=== PATIENT | female | born 1975 | race Caucasian/White ===

== ENCOUNTER 2017-03-27 00:46 | Emergency (ER) | payer BC ==
--- NOTE | 2017-03-27 00:48 | PDOC ---
History of Present Illness - General Chief Complaint: Pain Stated Complaint: LLQ PAIN Time Seen by Provider: 03/27/17 00:47 - History of Present Illness Initial Comments: This 42-year-old woman with a history of kidney stones, IBS, endometriosis, C. difficile colitis (4 years ago) presents with 24-hour history of progressive left lower quadrant abdominal pain. Patient was seen by urgent care at [facility] earlier today. Ultrasound at that time showed no evidence of hydronephrosis /hydroureter, kidney stones; patient had bilateral ovarian cysts (complex on right, simple on the left) left-sided ovarian cyst with 3.7 cm. There is no evidence of free fluid in the pelvis. Patient was given Tylenol with Codeine for pain relief. The patient has had 2 doses since discharge from urgent care( 3 PM and 9 PM) with little relief of her pain. She was waiting at another ER for approximately 1 hour without being seen and presented here. She has not had fever but has had chills for the last few hours. She also notes nausea without vomiting. She has had one normal bowel movement in the last several hours which was not painful but actually resulted in some relief of pain temporarily. Past History - Past Medical History Allergies/Adverse Reactions: Allergies Allergy/AdvReac Type Severity Reaction Status Date / Time Sulfa (Sulfonamide Allergy Verified 09/05/13 12:25 Antibiotics) Home Medications: Ambulatory Orders Labetalol HCl 150 mg PO BID 09/05/13 Escitalopram Oxalate [Lexapro -] 10 mg PO DAILY 03/27/17 Oxycodone HCl/Acetaminophen [Percocet 5-325 mg Tablet] 1 tab PO Q6H PRN #12 tablet MDD 3 tabs 03/27/17 HTN: Yes Kidney Stones: Yes - Surgical History GI Surgery: Yes (UTERINE) - Suicide/Smoking/Psychosocial Hx Smoking History: Never smoked Review of Systems - Review of Systems Able to Perform ROS?: Yes Comments:: 12 point review of systems is negative except for what is noted in the history of present illness *Physical Exam - Physical Exam Comments: GENERAL: Adult female, in moderate distress secondary to lower abdominal pain; alert and oriented 3 HEAD: Normal with no signs of trauma. EYES: PERRLA, EOMI, sclera anicteric, conjunctiva clear. ENT: Ears normal, nares patent, oropharynx clear without exudates. Dry mucous membranes. NECK: Normal range of motion, supple without lymphadenopathy, JVD, or masses. LUNGS: Breath sounds equal, clear to auscultation bilaterally. No wheezes, and no crackles. HEART:Regular rate and rhythm, normal S1 and S2 without murmur, rub or gallop. ABDOMEN:.normal bowel sounds; marked left lower quadrant pain with mild guarding ; no rebound/no masses/no organomegaly EXTREMITIES: Normal range of motion, no edema. No clubbing or cyanosis. No erythema, or tenderness. NEUROLOGICAL: Cranial nerves II through XII grossly intact. Normal speech. No focal neurological deficits. MUSCULOSKELETAL: Back non-tender to palpation, no CVA tenderness SKIN: Warm, Dry, normal turgor, no rashes or lesions noted. ED Treatment Course - LABORATORY CBC & Chemistry Diagram: 03/27/17 01:45 03/27/17 01:45 Progress Note - Progress Note Progress Note: Although this patient has had ultrasound earlier today which showed only ovarian cysts, she has had progressive pain with the development of nausea over the last few hours[albeit after 2 doses of Tylenol with codeine]. Because she has mild rebound and marked tenderness of left lower quadrant on current exam, further workup to rule out acute diverticulitis as well as ovarian torsion/ rupture of cyst was pursued. CBC/chemistry profile/urinalysis/PGU was sent No significant abnormality seen on laboratory evaluation. PGU negative Patient was given Toradol 30 mg IV/1 L of normal saline IV/Zofran 4 mg IV. Patient had minimal relief after Toradol. Dilaudid 0.5 mg IV administered. Abdominal/pelvic CT (IV contrast/no PO contrast) showed 3. 7 cm left-sided ovarian cyst without evidence of rupture/torsion/abscess. No evidence of diverticulitis or other acute colonic process. No other abnormalities found. Results discussed with the patient. Patient had good relief of pain with Dilaudid IV. Patient was discharged with instructions to follow-up with her color buffer on April 01 as previously scheduled. She should place warm compresses to the area of pain and use ibuprofen/acetaminophen/naproxen as needed for mild- to-moderate pain. Prescription for Percocet 5/325 should be used for more severe pain up to 3 times a day (patient should not use Tylenol with codeine while using Percocet). One tablet of Percocet 5/325 was given to the patient for use at home prior to filling the prescription. Patient should return to the emergency room if she has persistent severe pain or develops fever/vomiting *DC/Admit/Observation/Transfer Diagnosis at time of Disposition: Left ovarian cyst - Discharge Dispostion Disposition: HOME Condition at time of disposition: Stable - Prescriptions Prescriptions: Oxycodone HCl/Acetaminophen [Percocet 5-325 mg Tablet] 1 tab PO Q6H PRN #12 tablet MDD 3 tabs PRN Reason: Severe Pain - Referrals - Patient Instructions Printed Discharge Instructions: Ovarian Cyst Additional Instructions: Local warmth to left lower abdomen as needed Ibuprofen/naproxen/acetaminophen for [id number] pain Percocet 5/325 up to 3 times a day as needed for severe pain Follow-up with your color buffer on April 01 as scheduled Return to ER if you have persistent severe pain/fever/vomiting - Post Discharge Activity
[2017-03-27 01:17] VITALS: TEMP 98.8; BMI 25.0
[2017-03-27] MEDS ORDERED: KETOROLAC TROMETHAMINE 30 MG/1 ML VIAL IVPUSH ONE (01:18)
[2017-03-27] MEDS ORDERED: SODIUM CHLORIDE 1,000 ML IV STA (01:18)
[2017-03-27] MEDS ORDERED: ONDANSETRON 4 MG/2 ML VIAL IVPUSH ONE (01:20)
[2017-03-27] MEDS ORDERED: KETOROLAC TROMETHAMINE 30 MG/1 ML VIAL ONE (01:47)
[2017-03-27] MEDS ORDERED: ONDANSETRON 4 MG/2 ML VIAL ONE (01:47)
[2017-03-27] MEDS ORDERED: HYDROmorphone HCL CARPU-JECT 1 MG/1 ML DISP.SYRIN IVPUSH ONE (02:11)
[2017-03-27] MEDS ORDERED: HYDROmorphone HCL CARPU-JECT 1 MG/1 ML DISP.SYRIN ONE (02:13)
[2017-03-27 02:17] LABS: BASO % 0.2 % (0-2.0); EOS % 0.5 % (0-4.5); HEMATOCRIT 38.6 % (32.4-45.2); HEMOGLOBIN 12.6 GM/dL (10.7-15.3); MCH 28.4 pg (25.7-33.7); MCHC 32.6 g/dl (32.0-36.0); MEAN CELL VOLUME 87.3 fl (80-96); MEAN PLT VOLUME 8.3 fl (7.5-11.1); NEUT % 72.3 % (42.8-82.8); PLATELET COUNT 286 K/MM3 (134-434); RBC 4.42 M/mm3 (3.60-5.2); RDW 14.3 % (11.6-15.6); WHITE BLOOD COUNT 8.2 K/mm3 (4.0-10.0)
[2017-03-27 02:18] LABS: URINE APPEARANCE CLEAR; URINE BILIRUBIN NEGATIVE (NEGATIVE); URINE BLOOD NEGATIVE (NEGATIVE); URINE COLOR LTYELLOW; URINE GLUCOSE (UA) NEGATIVE (NEGATIVE); URINE KETONE NEGATIVE (NEGATIVE); URINE LEUK ESTERASE NEGATIVE (NEGATIVE); URINE NITRITE NEGATIVE (NEGATIVE); URINE PROTEIN NEGATIVE (NEGATIVE); URINE UROBILINOGEN NEGATIVE mg/dL (0.2-1.0)
[2017-03-27 02:38] LABS: ALBUMIN 4.1 g/dl (3.4-5.0); ALK PHOS 94 U/L (45-117); ANION GAP 11 (8-16); BILIRUBIN,TOTAL 1.2 mg/dL (0.2-1.0); BLOOD UREA NITROGEN 12 mg/dL (7-18); CALCIUM 9.1 mg/dL (8.5-10.1); CHLORIDE 103 mmol/L (98-107); CO2 26 mmol/L (21-32); CREATININE 0.6 mg/dL (0.55-1.02); GLUCOSE,RANDOM 107 mg/dL (74-106); POTASSIUM 3.9 mmol/L (3.5-5.1); SGOT/AST 15 U/L (15-37); SGPT/ALT 30 U/L (12-78); SODIUM 140 mmol/L (136-145); TOT PROT 7.7 g/dl (6.4-8.2)
[2017-03-27 04:06] VITALS: BP 144/86; PULSE 79
== END 2017-03-27 04:41 | disposition home or self-care (01) ==
LOC: FER 00:46
PROC: 3E033NZ Introduction of Analgesics, Hypnotics, Sedatives into Peripheral Vein, Percutaneous Approach (ICD-10-PCS; principal; 2017-03-27)
PROC: 3E0333Z Introduction of Anti-inflammatory into Peripheral Vein, Percutaneous Approach (ICD-10-PCS; 2017-03-27)
PROC: 3E033GC Introduction of Other Therapeutic Substance into Peripheral Vein, Percutaneous Approach (ICD-10-PCS; 2017-03-27)
PROC: 3E0337Z Introduction of Electrolytic and Water Balance Substance into Peripheral Vein, Percutaneous Approach (ICD-10-PCS; 2017-03-27)
DX: N83.202 Unspecified ovarian cyst, left side (principal)
CPT/HCPCS: 36415; 74177-TC; 80053; 81003; 84703; 85025; 99283-25

== ENCOUNTER 2017-09-17 06:11 | Day surgery (SDC) | payer BC ==
[2017-09-15 18:11] VITALS: BMI 35.4
--- NOTE | 2017-09-16 19:01 | HP ---
DATE OF ADMISSION: 09/17/2017 ADMITTING DIAGNOSIS: Thyroglossal duct cyst. HISTORY OF PRESENT ILLNESS: This 42-year-old female has had history of swelling of the anterior neck. She has associated symptoms of hoarseness. She also feels constriction, especially when she bends forward or twists her neck. There is an unrelated history of gastroesophageal reflux disease. Her examination is consistent with a thyroglossal duct cyst which is confirmed on ultrasound. She is now admitted for excision of thyroglossal duct cyst. PAST MEDICAL HISTORY: Primary medical doctor is Dr. Pat Carballo. The patient has a history of kidney stones, hypertension, history of clostridium difficult treated with fecal transplant, migraine headaches, endometriosis, section, with postoperative embolism, chronic sinusitis, allergies and irritable bowel syndrome. She does not smoke. She does have allergies to SULFA. MEDICATION: Present medications include labetalol, Lexapro, and . SOCIAL HISTORY: She is and lives in [place]. She did have some postoperative nausea following general anesthesia. Bleeding history is negative. 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 FAMILY HISTORY: There is no family history of bleeding or anesthesia problems. PHYSICAL EXAMINATION: General: Patient is well developed female, in no distress. HEENT: Head is normal. Eyes are clear. Ears are unremarkable. The neck is remarkable for a 3.5 to 4 cm thyroglossal duct cyst in its usual location. It is soft, and there is an overlying relaxing and tension line. DATA: Preoperative labs are pending. Thyroid ultrasound performed at [facility] on June 07, 2017, shows a normal sized thyroid with no cysts or solid masses. The midline neck is remarkable for cystic structures 3.1 x 1.6 x 1.7 cm, consistent with a thyroglossal duct cyst. IMPRESSION: Thyroglossal duct cyst. PLAN: Excision of thyroglossal duct cyst. INFORMED CONSENT: Patient understands the indications, alternatives, nature of risks and benefits of proposed surgery. Potential complications including but not limited to anesthesia, bleeding, infection, scar, numbness, and need for further treatment were discussed in detail. She understands and accepts these risks and wished to proceed with surgery. Questions were answered fully. FREDDIE FOX M.D. PORSCHE/[id number] MTDD
--- NOTE | 2017-09-17 07:54 | HP ---
History & Physical Update - History History: No Change - Physical Physical: No Change - Assessment Assessment: No Change - Plan Plan: No Change
[2017-09-17] MEDS ORDERED: MIDAZOLAM HCL 2 MG/2 ML SINGLE DOSE VIAL ONE (07:56)
[2017-09-17] MEDS ORDERED: SUCCINYLCHOLINE CHLORIDE 200 MG/10 ML VIAL ONE (08:07)
[2017-09-17] MEDS ORDERED: ROCURONIUM BROMIDE 50 MG/5 ML VIAL ONE (08:07)
[2017-09-17] MEDS ORDERED: PROPOFOL 20 ML ONE (08:07)
[2017-09-17] MEDS ORDERED: LIDOCAINE HCL/PF 2% SDV 5ML VIAL ONE (08:20)
[2017-09-17] MEDS ORDERED: DEXAMETHASONE SOD PHOSPHATE 4 MG/1 ML VIAL ONE (08:20)
[2017-09-17] MEDS ORDERED: LIDOCAINE HCL 2% JELLY (5 ML/TUBE) ONE (08:20)
[2017-09-17] MEDS ORDERED: NEOSTIGMINE METHYLSULFATE 0.5 MG/ML - 10 ML MDV ONE (09:25)
[2017-09-17] MEDS ORDERED: GLYCOPYRROLATE 0.2 MG/1 ML VIAL ONE (09:25)
[2017-09-17] MEDS ORDERED: BENZOIN/ALOE VERA/STORAX/TOLU 58 ML BOTTLE ONE (09:28)
[2017-09-17] MEDS ORDERED: oxyCODONE HCL 5 MG TABLET PO PRN ×2 (09:41→13:35)
[2017-09-17] MEDS ORDERED: TRIMETHOBENZAMIDE HCL 200MG/2ML INJ IM PRN (09:41)
--- NOTE | 2017-09-17 09:41 | OP ---
Operative Note - Note: Operative Date: 09/17/17 ([id number]) Pre-Operative Diagnosis: thyroglossal duct cyst Operation: excision of thyroglossal duct cyst Findings: thyroglossal duct cyst, no tract toward hyoid bone Implants: none Post-Operative Diagnosis: Same as Pre-op Surgeon: Indra Guardado Anesthesiologist/PAPER BOX MAKER: Veronica Benitez MD Anesthesia: General Specimens Removed: thyroglossal duct cyst Estimated Blood Loss (mls): 3 Blood Volume Replaced (mls): 0 Operative Report Dictated: Yes
[2017-09-17] MEDS ORDERED: LACTATED RINGERS SOLUTION 1,000 ML IV SCH ×2 (09:45→13:45)
[2017-09-17] MEDS ORDERED: ACETAMINOPHEN INJECTION 100 ML IVPB ONE (10:44)
[2017-09-17] MEDS ORDERED: ONDANSETRON 4 MG/2 ML VIAL ONE (10:46)
[2017-09-17] MEDS ORDERED: ACETAMINOPHEN 1000 MG/100 ML VIAL (NON FORMULARY) IVPB ONE (10:50)
[2017-09-17 11:49] VITALS: TEMP 98.1
[2017-09-17] MEDS ORDERED: ONDANSETRON 4 MG/2 ML VIAL IVPUSH PRN (13:35)
[2017-09-17] MEDS ORDERED: PROMETHAZINE HCL 25 MG/1 ML VIAL IVPUSH PRN (13:35)
[2017-09-17 14:33] VITALS: BP 123/65; PULSE 73
--- NOTE | 2017-09-17 14:49 | OP ---
DATE OF OPERATION: 09/17/2017 PREOPERATIVE DIAGNOSIS: Thyroglossal duct cyst. POSTOPERATIVE DIAGNOSIS: Thyroglossal duct cyst. PROCEDURE: Excision of thyroglossal duct cyst. SURGEON: Freddie Guardado MD ANESTHESIOLOGIST: Veronica Benitez MD ANESTHESIA: General via endotracheal tube. INDICATIONS: This 42-year-old female has had swelling of the anterior neck at the midline which has gradually enlarged. It is creating symptoms, particularly pressure symptoms when she lies down or extends her neck. Examination demonstrates a 3-4-cm swelling of the anterior midline of the neck more superiorly. Ultrasound shows a normal thyroid gland, but a thyroglossal duct cyst. She is now brought to surgery for treatment. FINDINGS: Thyroglossal duct cyst, without any tracking to the hyoid bone. DESCRIPTION OF PROCEDURE: Patient was brought to the operating room and placed on the operating table in the supine position. General endotracheal anesthesia was induced to a satisfactory level. She was prepped and draped in the usual fashion for surgery. A naturally occurring skin fold was used to create the incision. It was carried down through skin and subcutaneous tissue, and hemostasis was achieved with electrocautery. The platysma muscle was then incised. The cyst was identified and careful blunt dissection it from its surrounding tissue. There was small rupture of the cyst anteriorly and straw-colored fluid was suctioned. The cyst wall was somewhat thickened and remained intact. An overlying vein was isolated, divided, and ligated with 4-0 silk. Additional dissection eventually freed the thyroglossal duct cyst from the surrounding tissue. There was no tract directed toward the hyoid bone. Final attachments were divided, and the cyst sent to Pathology for routine studies. The wound was irrigated with saline, and hemostasis was excellent. The wound was then closed in layers using 4-0 Vicryl for the muscle and subcutaneous layer. A running 5-0 Prolene suture was used in a subcuticular fashion for the skin. Benzoin was applied, overlapping Steri-Strips were placed, and then, a folded 4x4 and Tegaderm were placed. A 3x3 Kerlix was used. Patient tolerated the procedure well. She was then awakened from general anesthesia and transferred to PACU in stable condition. ESTIMATED BLOOD LOSS: Approximately 3 mL She received crystalloid during the procedure. SPECIMEN: The thyroglossal duct cyst was sent to Pathology for routine studies. COMPLICATIONS: There were no complications. FREDDIE GUARDADO M.D. PORSCHE/[id number]
--- NOTE | 2017-09-19 17:25 | PATH ---
Surgical Pathology Report Patient Name: OSITO JO [facility]. Rec. #: [id number] /Age/Gender: 1975 (Age: 42) / F Account: [id number] Location: AMBULATORY SURG Taken: 09/17/2017 Received: 09/17/2017 Reported: 09/19/2017 Physicians: Indra Guardado M.D. Specimen(s) Received THYROGLOSSAL DUCT CYST Clinical History Thyroglossal cyst Final Diagnosis THYROGLOSSAL DUCT CYST, EXCISION: CONSISTENT WITH THYROGLOSSAL DUCT CYST. SOME THYROID TISSUE ADJACENT TO THE CYST WALL NOTED. Electronically Signed Radha Carballo M.D. Gross Description Received in formalin labeled "thyroglossal duct cyst," is a 3.0 x 1.3 x 0.8 cm denise-brown, unoriented portion of soft tissue, possibly consistent with a cyst. The specimen is inked blue and serially sectioned. Sectioning reveals denise-red parenchyma. The specimen is entirely submitted in 3 cassettes. /09/17/2017 saudi/09/17/2017
== END 2017-09-17 14:10 | disposition home or self-care (01) ==
LOC: JASUSAT 06:11
PROVIDERS: ATTEND Otolaryngology
PROC: 0WB60ZX Excision of Neck, Open Approach, Diagnostic (ICD-10-PCS; principal; 2017-09-17 08:00)
DX: Q89.2 Congenital malformations of other endocrine glands (principal)
CPT/HCPCS: 84703; J0131